=== PATIENT | female | born 1990 | race Caucasian/White ===

== ENCOUNTER 2019-10-19 15:21 | Emergency (ER) | payer SELFPAY ==
--- OUTSIDE RECORDS SUMMARY | 2019-10-19 15:45 | XMS REPORT | Continuity of Care Document ---
:1990 Author Organization [facility] Address [address] [place] [address] Phone Care Team Providers Name Role Phone Deepak COON, Taylor Unavailable Unavailable Allergies, Adverse Reactions, Alerts Substance Reaction Status shellfish derived Active IODINE Nausea/Vomiting Active Medications Medication Instructions Dosage Effective Dates Status Comments (start - stop) Depo-Provera 150 IM Q 11-13 weeks - Active mg/mL intramuscular suspension LEXAPRO (unknown Not Available - Active strength) ADDERALL (unknown Not Available - Active strength) Problems Condition Effective Dates Clinical Status Comments (start - stop) Atyp squam cell of undet signfc cyto smr crvx (ASC-US) Cervical high risk HPV DNA test positive Mild cervical dysplasia Encounter for oth general - cnsl and advice on contraception Cervical high risk HPV DNA test positive Mild cervical dysplasia Encntr screen for infections w sexl mode of transmiss Encounter for surveillance of injectable contraceptive Encounter for surveillance of injectable contraceptive Human immunodeficiency virus - [HIV] counseling Encounter for surveillance of injectable contraceptive Encntr screen for infections w sexl mode of transmiss Human immunodeficiency virus - [HIV] counseling Encounter for surveillance of injectable contraceptive Encounter for surveillance of injectable contraceptive Human immunodeficiency virus - [HIV] counseling Encounter for test, result negative Encounter for test, result negative Carcinoma in situ of cervix, unspecified Cervical high risk HPV DNA test positive Low grade intrepith lesion cyto smr crvx (LGSIL) Encounter for surveillance of injectable contraceptive Encounter for screening for malignant neoplasm of cervix Encounter for surveillance of injectable contraceptive Encntr screen for infections w sexl mode of transmiss Disorder of the skin and subcutaneous tissue, unspecified Sebaceous cyst Encounter for surveillance of injectable contraceptive Encounter for surveillance of injectable contraceptive Encounter for surveillance of injectable contraceptive Moderate cervical dysplasia Low grade intrepith lesion cyto smr crvx (LGSIL) Human immunodeficiency virus - [HIV] counseling Encounter for test, result negative 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) (routine) w/o abn findings Encounter for oth screening for malignant neoplasm of breast Encntr screen for infections w sexl mode of transmiss Encounter for initial prescription of injectable contracep Encounter for surveillance of injectable contraceptive Encntr screen for infections w sexl mode of transmiss Encounter for surveillance of injectable contraceptive Encounter for surveillance of injectable contraceptive Encounter for test, result negative Encounter for surveillance of injectable contraceptive Encntr screen for infections w sexl mode of transmiss Encounter for surveillance of injectable contraceptive Contact w and exposure to infect w a sexl mode of transmiss Encntr screen for infections w sexl mode of transmiss Encounter for surveillance of injectable contraceptive Encounter for surveillance of injectable contraceptive PT, Negative BCM Other, Surveillance Urinary Urgency BCM Other, Surveillance BCM Other, Surveillance BCM Other, Surveillance HIV, Screening HIV 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 [address], [place], [place], [facility], [address] [address]. W [address] tel:[phone] St, [place], [address] [place] [address], [id number], tel:[phone] [facility] Atyp squam cell Nov-1 Deepak Referring [facility] [place] of undet sign 9-201 Taylor. [address] Provider: [place] cyto smr crvx [address], [place] (ASC-US)Cervica [place], Raphaelidis [facility], 620 l high risk HPV [address]. , [address] DNA test tel:[phone] [address], St, [place], positiveMild [address] [place], [place], cervical [address]. [id number], dysplasia tel:[phone] [place] 433543 tel:[phone] [facility] Encounter for Parete Referring [facility] [place] ot general 5- Kenna. [address] Provider: Buffy cnsl and advice [address], [place], [place], [address] [place], 620 contraceptionCe [address]. W [address] W [address] rvical high tel:[phone] St, [place], , [place], [place] [address] [place], [address]. [place], test tel:[phone], positiveMild 564313 [place] cervical tel:[phone] dysplasiaEncntr [id number] screen for infections w sexl mode of transmissEncoun ter for surveillance of injectable contraceptive [facility] Encounter for [facility] Referring [facility] [place] surveillance of Taylor. [address] Provider: [facility] injectable [address], [place] contraceptiveHu [place] man [address]. , [address] immunodeficienc tel:[phone] [address], St, [place], y virus [HIV] [address] [place], [place], [place], counseling [address]. [id number], tel:[phone] [place] 389047 tel:[phone] [facility] Encounter for [place] Helene. Referring [facility] [place] surveillance of [address] Provider: [facility] injectable [address], [place], [place], [address], [place], [address] [place], 620 cntr screen for [place]. W Yuhaaviatam W Yuhaaviatam infections w St, [place], [place], [place], [place], [address]. [place], transmissHuman [id number], immunodeficienc [place] y virus [HIV] tel:[phone] counseling [phone] [facility] Encounter for Reid Referring [facility] [place] surveillance of Sherine. 620 Provider: [place] injectable [address], [place] contraceptive [place], Reid [place], [address] [place], 620 [address], [place]. W Yuhaaviatam W Yuhaaviatam tel:[phone] St, [place], St, [place], [address] [place], [address]. [place], tel:[phone], 603198Ylvyz [place] lting tel:[phone] Provider: 486398 N[place]SE [place] [facility]. [facility] Encounter for Reid Referring [facility] [place] surveillance of Sherine. 620 Provider: [place] injectable [address], [place] contrace[place], Reid [place], [address] [place], 620 man [address], [place]. W Yuhaaviatam W Yuhaaviatam immunodeficienc tel:[phone] St, [place], St, [place], [place] virus [[place]] [address] [place], [address]. [place], counselingEncou tel:[phone], nter for 935783 [place] test, tel:[phone] result negative [phone] [facility] Encounter for Raphaelidis Referring [facility] [place] test, Taylor. [address] W Provider: Southern result [address], [place] negativeCarcino [place], [place], 620 [place] [address]. , [address] W [address] cervix, tel:[phone] [address], St, [place], unspecifiedCerv [address] [place], [place], [place], ical high risk [address]. [id number], HPV DNA test tel:[phone] [place] positiveLow 751229 tel:[phone] grade intrepith [phone] lesion cyto smr crvx (LGSIL) [facility] Sherine. 620 Provider: [place] injectable [address], Sherine [place] contraceptiveEn [place], [place], [address] [place], 620 [place] [address], [place]. W Yuhaaviatam W Yuhaaviatam screening for tel:[phone] St, [place], St, [place], [place] [address] [place], [address]. [place], neoplasm of tel:[phone], cervix 782339 [place] tel:[phone] [facility] Encounter for Lawrence Narayan. [facility] of 3 [address] Provider: [facility] injectable [address], [place], [place], [address], [place], [address] [place], 620 [place]. W [address], [place], [place], [place], [address]. [place], [id number], [place] tel:[phone] [facility] Encntr screen [place] Referring [facility] for infections [place] Provider: [facility] w sexl mode of 8 Sueane. 620 Sueane [place] transmissDisord W [address], [place], 620 er of the skin [place], [place], W [place] and [address], [place], subcutaneous tel:[phone] [address], [place], tissue, [address] [place], [place], [id number], unspecifiedSeba [address]. [place] ceous cyst tel:[phone] tel:[phone] [facility] Encounter for Lawrence Narayan. Referring [facility] surveillance of 0 620 W [address] Provider: [facility] injectable [address] St, [place], [place], [address], [place], [address] [place], 620 [place]. W [address], [place], [place], [place], [address]. [place], [id number], [place] tel:[phone] [facility] Encounter for Lawrence Narayan. [facility] of 620 [address] Provider: [facility] injectable [address] St, [place], [place], [address], [place], [address] [place], 620 [place]. W [address] W [address], [place], [place], [place], [address]. [place], [id number], [place] tel:[phone] [facility] Encounter for Lawrence Narayan. [facility]ing [facility] surveillance of 620 [address] Provider: [facility] injectable [address], [place], [place], [address], [facility]. [facility], [facility] [place]. W [address], [place], [place], [id number], [place] tel:[phone] [facility] Moderate May- Parete [facility] [place] cervical [facility]-[employer]. [address] dysplasia [address], [place], [place], [facility], 620 [address]. W Yuhaaviatam tel:[phone] , [place], [address] [place], [id number], [place] tel:[phone] [facility] Low grade May- Parete [facility] [place] intrepith 0-201 Kenna. [address] lesion cyto smr [address], [place] crvx (LGSIL) [place], [facility], [facility] [address]. W Yuhaaviatam tel:[phone] , [place], [address] [place], [id number], [place] tel:[phone] [facility] Human Apr- White Helene. [facility] [place] immunodeficienc [address] y virus [HIV] 7 St, [place], [place], [address], [facility], [facility] nter for [place]. W Yuhaaviatam test, [facility], result [place], negativeEncntr [id number], for kennel helper exam [place] (general) tel:[phone] (routine) w/o [id number] abn findingsEncount er for oth screening for malignant neoplasm of breastEncntr screen for infections w sexl mode of transmissEncoun ter for initial prescription of injectable contracep [facility] Encounter for [place] [facility] [place] surveillance of [place] injectable 7 Sueane. [address] contraceptiveEn [address], [facility], [facility] cntr screen for [place], [place] [address], [place], sexl mode of tel:[phone] [place], transmiss [id number], [place] tel:[phone] [facility] Encounter for Borglum Consulting [facility] [place] surveillance of Kelle. 620 Provider: [place] injectable [address], [place]URSE [place] contrace[place], [facility]. [place] [address], [place]. W Yuhaaviatam tel:[phone] St, [place], [address] [place], [id number], [place] tel:[phone] [facility] Encounter for Sep-0 Borglum Consulting [facility] surveillance of Kelle. 620 Provider: [place] injectable [address], NURSE [place] contraceptive[place], [facility]. [facility], [facility] [place] [address], [place]. W Yuhaaviatam test, tel:[phone] St, [place], result negative [address] [place], [id number], [place] tel:[phone] [facility] Encounter for Sy- Lawrence Narayan. [facility] of [address] injectable [address], [place], [place], [address], [facility], 620 cntr screen for [place]. W Yuhaaviatam infections w St, [place], [place]l mode [place], transmiss [id number], [place] tel:[phone] [facility] Encounter for February- Lawrence Narayan. Consulting [facility] surveillance of 620 W Yu[address]am Provider: [place] injectable 6 [address], [place], [place], [address], [facility]. [facility], [address] [place], [place], [place], [id number], [place] tel:[phone] [facility] Contact w and Mar-2 [facility] exposure to Kieran. [address] infect w a sexl [address], [place], [place], [place], 620 transmissEncntr [address]. W Yuhaaviatam screen for tel:[phone] St, [place], [place] [address] [place], sexl mode of [id number], transmiss [place] tel:[phone] [facility] Encounter for Som- Kornblum Consulting [facility] surveillance of Laura. 620 W Provider: [place] injectable [address], [place]URSE [place], [facility]. [facility], [facility] [address]. W Yuhaaviatam tel:[phone] St, [place], [address] [place], [id number], [place] tel:[phone] [facility] Encounter for Oct-2 Brianna Nidhi. [facility] [place] surveillance of 8-201 [address] injectable [address] [place] contraceptive [place], [facility], 620 [address]. W Yu[address]iatam tel:[phone] St, [place], [address] [place], [id number], [place] tel:[phone] [facility] PT, NegativeBCM Apr- Jhonathan Beal. [facility] [place] Other, [address] SurveillanceUri [address], [place], [place], [address]. [facility], [facility] tel:[phone], [place], [place], [id number], [place] tel:[phone] [facility] BCM Other, Jhonathan Beal. Consulting [facility] Surveillance [address] Provider: [facility] 5 , [place], [place], [address]. [facility]. [facility], [facility] tel:[phone] [address] [address] , [place], [place], [id number], [place] tel:[phone] [facility] BCM Other, Parete [facility]ing [facility] Surveillance Kenna. 620 W Provider: [facility] [address], [place], [place], [facility]. [facility], [facility] [address]. W Yuhaaviatam tel:[phone] St, [place], [address] [place], [id number], [place] tel:[phone] [facility] BCM Other, Deepak Consulting [facility] Surveillance Taylor. 620 W Provider: [facility] [address], [place]SE [place], [facility]. [facility], [facility] [address]. W Yuhaaviatam tel:[phone] St, [place], [address] [place], [id number], [place] tel:[phone] [facility] Judi [facility] [place] Bing. [address], [place], [facility], [facility] [address]. W Yuhaaviatam tel:[phone] St, [place], [address] [place], [id number], [place] tel:[phone] [facility] 3 Brianna Terrell. [facility] [place] 0 [address] [place], [facility], [facility] [address]. W Yuhaaviatam tel:[phone] St, [place], [address] [place], [id number], [place] tel:[phone] [facility] HIV, Jhonathan Beal. [facility] [place] ScreeningHIV 0- 620 [address], [place], [place], [address]. 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 [facility] [place] Routine WWEBCM 0-201 [address] Other, [address] [place] Surveillance [place], [place], [facility], [facility] [address]. W Yuhaaviatam tel:[phone] , [place], [address] [place], [id number], [place] tel:[phone] [facility] BCM Other, Chloe [facility]ing [facility] [place] Provider: [facility] [address], [place]SE [place], [place], [facility]. [place] [address]. W Yu[place]am tel:[phone] , [place], [address] [place], [id number], [place] tel:[phone] Family History Family Member Diagnosis Age At Onset Father Hypertension Mother No history of Stroke Father No history of Myocardial infarction 1st degree relative No hx of cancer of breast, colon, endometrium or ovary Maternal grandmother Cancer, ovarian Mother Hypertension Father No history of Stroke Mother No history of Myocardial infarction 1st degree relative No hx of venous thromboembolism 1st degree relative No hx of coronary heart disease (female <65, male <55) Father High cholesterol Immunizations Vaccine Date Status Comments measles, mumps and rubella administered Note: [facility] 2005 ; virus vaccine Source: Source Unspecified Hep B, adult, 3 dose administered Note: [facility] HX 07/2006 ; Source: Source Unspecified Payers Payer name Insurance type Covered green party ID Authorization(s) [facility] [id number] Social History Type Description Quantity Date Captured Comments Alcohol Use Details Unknown Caffeine Use Details Unknown Tobacco Use Status Unknown Smoking Status Former smoker Sex Female Vital Signs Date / Height Weight BMI Pulse Blood Temperature Respiratory Body Head BMI Pulse Inhaled Time: Rate Pressure Rate Surface Circumference percentile Ox Ox Area No information Chief Complaint And Reason For Visit No information Reason For Referral Reason For Referral No information Plan Of Treatment Date Type Action Status Referral Ordered: ordered Gynecology (related to Moderate cervical dysplasia) Referral Referred To: ordered [facility] [place] [address] [place], [place], [id number] Ordered: Referrals: Gynecology. [facility]. Evaluate and treat History Of Present Illness Encounter Date Complaint History Of Present Illness No information Functional Status Date Functional Assessment No information Medications Administered Medication Instructions Dosage Effective Dates (start - stop) Status Comments No information Instructions Date Instruction Additional Information No information Assessments Type Assessment Date No information Goals Health Concern Goal Type Priority Status Date No information Medical Equipment Description Device Alton Device Identifier Effective Dates (start - stop ) Status No information Mental Status Date Cognitive Assessment No information Health Concerns Observation Date No information Concern Status Date No information
--- OUTSIDE RECORDS SUMMARY | 2019-10-19 15:45 | XMS REPORT | Continuity of Care Document ---
:1990 Author Organization [facility] Address [address] [place] [address] Phone Care Team Providers Name Role Phone Lian Parekh Unavailable Unavailable Allergies, Adverse Reactions, Alerts Substance Reaction Status shellfish derived Active IODINE Nausea/Vomiting Active Medications Medication Instructions Dosage Effective Dates Status Comments (start - stop) Depo-Provera 150 IM Q 11-13 weeks - Active mg/mL intramuscular suspension LEXAPRO (unknown Not Available - Active strength) ADDERALL (unknown Not Available - Active strength) Problems Condition Effective Dates Clinical Status Comments (start - stop) Moderate cervical dysplasia Atyp squam cell of undet signfc cyto smr crvx (ASC-US) Cervical high risk HPV DNA test positive Atyp squam cell of undet signfc cyto [...] Encounter for test, result negative Encntr for purler exam (general) (routine) w/o abn findings Encounter [...] BCM Other, Surveillance HIV, Screening HIV Counseling [employer] Exam, Routine WWE BCM Other, Surveillance BCM [...] For Visit Copied on Encounter [facility] Jhonathan Beal. [facility] [place] [address] 9 [facility], [address]. [facility], [facility] tel:[phone] [address] [place] [address], [id number], tel:[phone] [facility] Moderate Nov-2 Raphaelidis [facility] [place] cervical 5-201 [place]. [address] dysplasiaAtyp [address], [place] squam cell [place], [place], 620 undet signfc [address]. [address] cyto smr crvx tel:[phone] St, [place], (ASC-US)Cervica [address] [place], l high risk HPV [id number], DNA test [place] positive tel:[phone] [facility] Atyp squam cell Nov-1 Raphrichard Referring [facility] [place] of undet signfc 9-201 [place]. [address] W Provider: Southern cyto smr crvx [address], [place] (ASC-US)Cervica [place], [facility], 620 l high risk HPV [address]. , [address] DNA test tel:[phone], [place], [place], positiveMild [address] [place], [place], cervical [address]. [id number], dysplasia tel:[phone] [place] 804698 tel:[phone] [facility] Encounter for Aug-0 Parete Referring [facility] [place] ot general 5-201 Kenna. 620 W Provider: [facility] cnsl and advice [address], [place], Parete, 620 [place], 620 contraceptionCe [address]. [address] [place] rvical high tel:[phone] St, [place], [place], [place], [place] [address] [place], [address]. [place], test tel:[phone], positiveMild 166240 [place] cervical tel:[phone] dysplasiaEncntr 050029 screen for infections w sexl mode of transmissEncoun ter for surveillance of injectable contraceptive [facility] Encounter for [facility] [address] Referring [facility] [place] surveillance of 2-201 Taylor. [address] W Provider: [facility] injectable [address], [place] contraceptiveHu [place], [facility], 620 man [address]. , [address] immunodeficienc tel:[phone], St, [place], y virus [HIV] [address] [place] [address]. [id number], tel:[phone] [place] 506230 tel:[phone] [facility] Encounter for Sy-2 White Helene. Referring [facility] [place] surveillance of [address] Provider: Southern injectable 9 [address], [place], [place], [address], [place], 620 [place], 620 cntr screen for [place]. [address] [place] [address] [place] infections w [address], [place], [place], [place], [address]. [place], transmissHuman [id number], immunodeficienc [place] y virus [HIV] tel:[phone] counseling [phone] [facility] Encounter for Reid Referring [facility] [place] surveillance of Sherine. 620 Provider: Southern injectable [address], Sherine [place] contraceptive [place], Reid J, 620 [place], 620 [address], [place]. [address] [place] tel:[phone] St, [place], [place], [place], [address] [place], [address]. [place], tel:[phone], 107226Sqcye [place] lting tel:[phone] Provider: [id number] [place]SE [place] [facility]. [facility] Encounter for Reid Referring [facility] [place] surveillance of Sherine. 620 Provider: Southern injectable [address], Sherine [place] contraceptiveHu [place], Reid J, 620 [place], 620 man [address], [place]. [address] [place] immunodeficienc tel:[phone] St, [place], [place], [place], [place] virus [[place]] [address] [place], [address]. [place], counselingEncou tel:[phone], nter for [id number] [place] test, tel:[phone] result negative [phone] [facility] Encounter for Raphaelidis Referring [facility] [place] test, Taylor. 620 W Provider: [facility] result [address], [place] negativeCarcino [place], [place], Raphaelidis [place], 620 [place] [address]. , [address] cervix, tel:[phone] [address], St, [place], unspecifiedCerv [address] [place], [place], ical high risk [address]. [id number], HPV DNA test tel:[phone] US positiveLow 150003 tel:[phone] grade intrepith [id number] lesion cyto smr crvx (LGSIL) [facility] Encounter for Reid [facility] surveillance of Sherine. 620 Provider: [facility] injectable [address], Sherine [place]inger contraceptiveEn [place], Reid J, 620 [place], 620 [place] [address], [place]. [address] [place] [address] [place] screening for tel:[phone] St, [place], [place], [place], [place] [address] [place], [address]. [place], neoplasm of tel:[phone], cervix 062942 [place] tel:[phone] [facility] Encounter for Lawrence Narayan. [facility]erring [facility] surveillance of [address] Provider: [facility] injectable 8 St, [place], [place], [address], White, 620 [facility], 620 [place]. [address], [place], [place], [place], [address]. [place], [id number], [place] tel:[phone] [facility] Encntr screen Hemmer Referring [facility] [place] for infections Goodre Provider: [facility] sexl mode of 8 Sueane. 620 Sueane Finger transmissDisord [address], [place], 620 er of the skin [place], [facility], [address], [place], subcutaneous tel:[phone] [address], [place], tissue, [address] [place], [place], [id number], unspecifiedSeba [address]. [place] ceous cyst tel:[phone] tel:[phone] [facility] Encounter for Lawrence Narayan. [facility]erring [facility] surveillance of [address] Provider: Southern injectable 8 St, [place], [place] [address], [place], 620 [place], 620 [place]. [address], [place], [place], [place], [address]. [place], [id number], [place] tel:[phone] [facility] Encounter for Lawrence Narayan. Referring [facility] surveillance of [address] Provider: [facility] injectable 8 St, [place], [place], [address], White, 620 [facility], [facility] [place]. [address], [place], [place], [place], [address]. [place], [id number], [place] tel:[phone] [facility] Encounter for Lawrence Narayan. [facility]ing [facility] surveillance of [address] Provider: [facility] injectable 7 , [place] [address], [facility]. [facility], [facility] [place]. [address], [place], [place], [id number], [place] tel:[phone] [facility] Moderate Parete [facility] cervical 6- Kenna. [address] dysplasia [address], [place], [facility], [facility] [address]. [address] tel:[phone] , [place], [address] [place], [id number], [place] tel:[phone] [facility] Low grade Parete [facility] intrepith 0-201 Kenna. [address] lesion cyto smr [address], [place] crvx (LGSIL) [place], [facility], [facility] [place] [address]. [address] [place] tel:[phone] St, [place], [address] [place], [id number], [place] tel:[phone] [facility] Human Lawrence Narayan. [facility] [place] immunodeficienc [address] y virus [HIV] 7 St, [place], [place], [address], [facility], [facility] nter for [place]. [address] [place] test, [facility], result [place], negativeEncntr [id number], for purler exam [place] (general) tel:[phone] (routine) w/o [id number] abn findingsEncount er for oth screening for malignant neoplasm of breastEncntr screen for infections w sexl mode of transmissEncoun ter for initial prescription of injectable contracep [facility] Encounter for Hemmer [facility] surveillance of [place] Southern injectable 7 Sueane. [address], [facility], 620 cntr screen for [place], [place] [address], [place], sexl mode of tel:[phone] [place], transmiss [id number], [place] tel:[phone] [facility] Encounter for Nov-2 [employer] [facility] surveillance of Desdemona. 620 Provider: [place] injectable [address], NURSE [place] contrace[place], [facility]. [facility], 620 [address], [place]. [address] [place] tel:[phone] St, [place], [address] [place], [id number], [place] tel:[phone] [facility] Encounter for Sep-0 [employer] [facility] surveillance of Desdemona. 620 Provider: [place] injectable [address], NURSE [place] contraceptive[place], [facility]. [facility], 620 [place] [address], [place]. [address] [place] test, tel:[phone] St, [place], result negative [address] [place], [id number], [place] tel:[phone] [facility] Encounter for Sy-2 Lawrence Narayan. [facility] surveillance of [address] injectable [address], [place], [place] [address], [facility], 620 cntr screen for [place]. [address] [place] [address] infections w [address], [place], [place]l mode of [place], transmiss [id number], [place] tel:[phone] [facility] Encounter for February-0 Lawrence Narayan. Consulting [facility] surveillance of [address] Provider: [place] injectable 6 St, [place], [place], [address], [facility]. [facility], [address], [place], [place], [id number], [place] tel:[phone] [facility] Contact w and Mar-2 [place] [facility] exposure to Kieran. 620 [place] infect w a sexl [address], [place] mode [place], [place], 620 transmissEncntr [address]. [address] screen for tel:[phone] St, [place], [place] w [address] [place], sexl mode of [id number], transmiss [place] tel:[phone] [facility] Encounter for Korwilmanlum [employer] [facility] surveillance of Laura. 620 W Provider: [facility] injectable [address], NURSE [place] contraceptive [place], [place], [facility]. [facility], [facility] [place] [address]. [address] [place] tel:[phone] St, [place], [address] [place], [id number], [place] tel:[phone] [facility] Encounter for Brianna Terrell. [facility] [place] surveillance of [address] [place] injectable [address] [place] contraceptive [place], [facility], [facility] [place] [facility] [address]. [address] [place] tel:[phone] St, [place], [address] [place], [id number], [place] tel:[phone] [facility] PT, NegativeBCM Jhonathan Beal. [facility] [place] Other, [address] SurveillanceUri [address], [place], [place], [address]. [facility], [facility] tel:[phone] [address], [place], [place], [id number], [place] tel:[phone] [facility] BCM Other, Jhonathan Beal. Consulting [facility] Surveillance [address] Provider: Southern [address], [place], [address]. [facility]. [facility], [facility] tel:[phone], [place], [place], [id number], [place] tel:[phone] [facility] BCM Other, Parete [facility] Surveillance Kenna. 620 W Provider: Southern [address], NURSE [place], [place], [facility]. [place] [address]. [address] [place] tel:[phone] St, [place], [address] [place], [id number], [place] tel:[phone] [facility] BCM Other, Jul-0 Leeraciel [employer] [facility] Surveillance Taylor. 620 W Provider: Southern [address], NURSE [place], [place], [facility]. [facility], [facility] [address]. [address] [place] tel:[phone] St, [place], [address] [place], [id number], [place] tel:[phone] [facility] May- Judi [facility] [place] 5-201 Bing. [address], [place], [facility], [facility] [address]. [address] [place] tel:[phone] St, [place], [address] [place], [id number], [place] tel:[phone] [facility] Brianna Terrell. [facility] [place] 0-201 [address] [facility], [place], [facility], [facility] [address]. [address] [place] [address] tel:[phone] St, [place], [address] [place], [id number], [place] tel:[phone] [facility] HIV, Jhnoathan Beal. [facility] [place] ScreeningHIV 0-201 [address] Counseling 4 , [place], [facility], [place], [address]. [facility], [facility] tel:[phone], [place], [place], [id number], [place] tel:[phone] [facility] [employer] Exam, Brianna Terrell. [facility] Routine WWEBCM 0-201 [address] Other, [address] [place] Surveillance [place], [facility], [facility] [address]. [address] [place] tel:[phone] St, [place], [address] [place], [id number], [place] tel:[phone] [facility] BCM Other, 0 Chloe [facility] Surveillance Kieran. 620 Provider: [facility] [address], [place]SE [place], [facility]. [place] [address]. [address] [place] tel:[phone] St, [place], [address] [place], [id number], [place] tel:[phone] Family History Family Member Diagnosis Age At [...] Unspecified Payers Payer name Insurance type Covered democrat ID Authorization(s) [facility] [id number] Social History Type Description Quantity Date Captured [...] Of Treatment Date Type Action Status Referral Referred To: ordered [facility] Ordered: [facility] Referral Ordered: ordered Gynecology (related to Moderate cervical dysplasia) Referral Referred To: ordered [facility] [employer] [facility] [address] [place], [place], [id number] Ordered: Referrals: Gynecology. [facility] [employer] [facility]. Evaluate and treat History Of Present Illness [...] Date No information Medical Equipment Description Device Mooers Device Identifier Effective Dates (start - stop ) Status No information Mental Status Date Cognitive Assessment No information Health Concerns Observation Date No information Concern Status Date No information
--- OUTSIDE RECORDS SUMMARY | 2019-10-19 15:45 | XMS REPORT | Continuity of Care Document ---
:1990 Author Organization [facility] Address [address] [place] [address] Phone Care Team Providers Name Role Phone Kenna Gusman NP Unavailable Unavailable Allergies, Adverse Reactions, Alerts Substance Reaction Status shellfish derived Active IODINE Nausea/Vomiting Active Medications Medication Instructions Dosage Effective Dates Status Comments (start - stop) Depo-Provera 150 IM Q 11-13 weeks - Active mg/mL intramuscular suspension LEXAPRO (unknown Not Available - Active strength) ADDERALL (unknown Not Available - Active strength) Problems Condition Effective Dates Clinical Status Comments (start - stop) Encounter for oth general - cnsl and [...] Encounter for test, result negative 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 [address], [place], [place], [facility] [address]. W [address] tel:[phone] St, [place], [address] [place] [address], [id number], tel:[phone] [facility] Encounter for [facility] Referring [facility] [place] ot general Kenna. [address] Provider: Buffy cnsl and advice [address], [place], P[place]te, [address], 620 contraceptionCe [address]. W [address]q W [place] rvical high tel:[phone] St, [place], St, [place], [place] [address] [place], [address]. [place], test tel:[phone], positiveMild 949160 [place] cervical tel:[phone] dysplasiaEncntr 612283 screen for infections w sexl mode of transmissEncoun ter for surveillance of injectable contraceptive [facility] En[facility] [place] surveillance of [place]. [address] W Provider: Southern injectable [address], [place] contraceptiveHu [place], [place], [place], 620 man [address]. , [address] immunodeficienc tel:[phone] [address], St, [place], [place] virus [HIV] [address] [place], [place] [address]. [id number], tel:[phone] [place] 406073 tel:[phone] [facility] Encounter for White Helene. Referring [facility] surveillance of [address] Provider: Southern injectable 9 St, [place], [place], [address], White, [address] [place], 620 cntr screen for [place]. W Mi'Kmaq W [address]'Kmaq infections w St, [place], [place], [place], [place], [address]. [place], transmissHuman [id number], immunodeficienc [place] y virus [HIV] tel:[phone] counseling [phone] [facility] Encounter for Referring [facility] surveillance of Sherine. 620 Provider: Southern injectable [address], Sherine Finger contraceptive [place], [place], Reid J, [address] [place], 620 [address], [place]. W Mi[place]Kmaq W Mi'Kmaq tel:[phone] St, [place], [place], [place], [address] [place], [address]. [place], tel:[phone], 278191Nbrid [place] lting tel:[phone] Provider: [id number] NURSE [place] [facility]. [facility] Encounter for Referring [facility] surveillance of Sherine. 620 Provider: Southern injectable [address], Sherine Finger contraceptiveHu [place], [place], Reid J, [address] [place], 620 man [address], [place]. W Mi'Kmaq W Mi'Kmaq immunodeficienc tel:[phone] St, [place], St, [place], [place] virus [[place]] [address] [place], [address]. [place], counselingEncou tel:[phone], nter for 678472 [place] test, tel:[phone] result negative [id number] [facility] Encounter for Raphaelidis Referring [facility] [place] test, Taylor. 620 W Provider: Southern result [address], [place] Finger negativeCarcino [place], [place], [place], 620 [place] [address]. , [address] W W [address] cervix, tel:[phone] [address], St, [place], unspecifiedCerv [address] [place], [place], [place], ical high risk [address]. [id number], HPV DNA test tel:[phone] US positiveLow 593324 tel:[phone] grade intrepith [phone] lesion cyto smr crvx (LGSIL) [facility] Encounter for Reid Referring [facility] surveillance of Sherine. 620 Provider: Southern injectable [address], Sherine Finger contraceptiveEn [place], [place], Reid J, 620 [place], 620 [place] [address], [place]. W Mi[place]Kmaq W Mi[place]q screening for tel:[phone] St, [place], [place], [place], [place] [address] [place], [address]. [place], neoplasm of tel:[phone], cervix [address]1001 [place] tel:[phone] [facility] Encounter for White Helene. Referring [facility] surveillance of 620 [address] Provider: Southern injectable 8 St, [place], [place], [address], White, 620 [place], 620 [place]. W [address], [place], [place], [place], [address]. [place], [id number], [place] tel:[phone] [facility] Encntr screen Hemmer Referring [facility] for infections Goodreau Provider: Southern w sexl mode of 8 Sueane. 620 Sueane Finger transmissDisord W [address], [place] [facility], 620 er of the skin [place], [place], [place], W [place] and [address], [place], subcutaneous tel:[phone] [address], [place], tissue, [address] [place], [place], [id number], unspecifiedSeba [address]. [place] ceous cyst tel:+[phone] tel:[phone] [facility] Encounter for Lawrence Narayan. Referring [facility] surveillance of 0 620 W [address] Provider: Southern injectable 8 St, [place], [place], [address], White, 620 [facility], 620 [place]. W [address] W [address], [place], [place], [place], [address]. [place], [id number], [place] tel:[phone] [facility] Encounter for Lawrence Narayan. Referring [facility] surveillance of 620 [address] Provider: Southern injectable 8 St, [place], [place], [address], White, [address] [place] [address], [facility] [place]. W Mi[place] W [address], [place], [place], [place], [address]. [place], [id number], [place] tel:[phone] [facility] Encounter for Lawrence Narayan. Consulting [facility] surveillance of 620 W [address] Provider: Southern injectable 7 St, [place], [place], [address], [facility]. [facility], [facility] [place]. W [address], [place], [place], [id number], [place] tel:[phone] [facility] Moderate [facility] [place] cervical 6-201 Kenna. [address] dysplasia [address], [place], [facility], 620 [address]. 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 [address] lesion cyto smr [address], Finger crvx (LGSIL) [place], [place], [facility], 620 [address]. W [address]q tel:[phone] , [place], [address] [place], [id number], [place] tel:[phone] [facility] Human Osbaldo-2 Lawrence Narayan. [facility] immunodeficienc [address] y virus [HIV] 7 , [place], [place], [address], [facility], 620 nter for [place]. W [address] test, [facility], result [place], negativeEncntr [id number], for director religious education exam [place] (general) tel:[phone] (routine) w/o [phone] abn findingsEncount er for oth screening for malignant neoplasm of breastEncntr screen for infections w sexl mode of transmissEncoun ter for initial prescription of injectable contracep [facility] Encounter for Hemmer [facility] 7 Sueane. 620 Finger contraceptiveEn [address], [facility], 620 cntr screen for [place], [place], [place] [address]. [facility], sexl mode of tel:[phone] [place], transmiss [id number], [place] tel:[phone] [facility] Encounter for Nov-2 [employer] [facility] surveillance of Jenison. 620 Provider: Southern injectable [address], NURSE [place] contrace[place], [place], [facility]. [facility], [facility] [address], [place]. W [place] tel:[phone] [facility], [address] [place], [id number], [place] tel:[phone] [facility] Encounter for Sep-0 [employer] [facility] surveillance of Jen[place]. 620 Provider: Southern injectable [address], NURSE [place] contraceptive[place], [place], [facility]. [facility], 620 [place] [address], [place]. W Mi'Kmaq test, tel:[phone] [facility], result negative [address] [place], [id number], [place] tel:[phone] [facility] Encounter for Sy-2 White Helene. [facility] surveillance of [address] Southern injectable 6 , [place], [place], [address], [facility], 620 cntr screen for [place]. W [address] infections w St, [place], sexl mode of [place], transmiss [id number], [place] tel:[phone] [facility] Encounter for February-0 Lawrence Narayan. Consulting [facility] surveillance of 620 W [address] Provider: Southern injectable 6 St, [place], [place], [address], [facility]. [facility], [address] [place], [place], [place], [id number], [place] tel:[phone] [facility] Contact w and Dec- [place] [facility] exposure to Kieran. [address] infect w a sexl [address], [place] mode of [place], [facility], 620 transmissEncntr [address]. W Mi'[place]maq screen for tel:[phone] St, [place], [place] [address] [place], sexl mode of [id number], transmiss [place] tel:[phone] [facility] Encounter for Kornblum Consult[employer] [facility] surveillance of Laura. 620 W Provider: Southern injectable [address], NURSE [place] contrace[place], [place], [facility]. [facility], [facility] [address]. W Mi'Kmaq tel:[phone] St, [place], [address] [place], [id number], [place] tel:[phone] [facility] Encounter for Brianna Terrell. [facility] surveillance of [address] injectable [address] [place]inger contraceptive [place], [facility], [facility] [address]. W Mi'Kmaq tel:[phone] St, [place], [address] [place], [id number], [place] tel:[phone] [facility] PT, NegativeBCM Apr- Jhonathan Beal. [facility] [place] Other, [address] SurveillanceUri [address], [place], [place], [address]. [facility], [facility] tel:[phone], [place], [place], [id number], [place] tel:[phone] [facility] BCM Other, Jan- Jhonathan Beal. Consulting [facility] Surveillance 2- 620 [address] Provider: [facility] 5 , [place], NURSE [place] [facility], [address]. [facility]. [facility], 620 tel:[phone] [address] [address] , [place], [place], [id number], [place] tel:[phone] [facility] BCM Other, Parete Consulting [facility] Surveillance 7 Kenna. 620 W Provider: [facility] [address], NURSE [place], [place], [facility]. [facility], 620 [address]. W [address]q tel:[phone] St, [place], [address] [place], [id number], [place] tel:[phone] [facility] BCM Other, Leeraciel Consulting [facility] Surveillance [place]. 620 W Provider: [facility] [address], [place], [place], [facility]. [facility], [facility] [address]. W Mi'[place]maq tel:[phone] , [place], [address] [place], [id number], [place] tel:[phone] [facility] Judi [facility] [place] 5 Bing. [address], [facility], [place], [facility], 620 [address]. W [address] tel:[phone] St, [place], [address] [place], [id number], [place] tel:[phone] [facility] Brianna Nidhi. [facility] [place] 0- [address] [facility], [place], [facility], 620 [address]. W [address] tel:[phone] St, [place], [address] [place], [id number], [place] tel:[phone] [facility] HIV, Jhonathan Beal. [facility] [place] ScreeningHIV 0-201 [address], [place], [facility], [address]. [facility], 620 tel:[phone] [address] [address] , [place], [place], [id number], [place] tel:[phone] [facility] PASSPORT SUPPORT ASSOCIATE Exam, Brianna Nidhi. [facility] [place] Routine WWEBCM 0-201 [address] Other, [address] [place]inger Surveillance [place], [place], [facility], 620 [address]. W [address] tel:+[phone] St, [place], [address] [place], [id number], [place] tel:[phone] [facility] BCM Other, Apr-0 [employer] [facility] [place] Surveillance 9 Kieran. 620 Provider: [facility] [address], NURSE [place], [place], [facility]. [facility], 620 [address]. W [address] tel:+[phone] St, [place], [address] [place], [id number], [place] tel:[phone] Family History Family Member Diagnosis Age At [...] Comments measles, mumps and rubella administered Note: PER [employer] HX 2005 ; virus vaccine Source: Source Unspecified Hep B, adult, 3 dose administered Note: PER HEALTH HX 07/2006 ; Source: Source Unspecified Payers Payer name Insurance type Covered constitution party ID Authorization(s) [facility] [id number] Social History Type Description Quantity Date Captured [...] Moderate cervical dysplasia) Referral Referred To: ordered OB-PASSPORT SUPPORT [facility] [place] [address] [place], [place], [phone] Ordered: Referrals: Gynecology. [facility]-PASSPORT SUPPORT [facility] [place]. Evaluate and treat Appointment TEO BROWN BOOKED History Of Present Illness Encounter Date Complaint History Of Present Illness No information Functional Status Date Functional Assessment No information Medications Administered Medication Instructions Dosage Effective Dates (start - stop) Status Comments No information Instructions Date Instruction Additional Information No information Assessments Type Assessment Date No information Goals Health Concern Goal Type Priority Status Date No information Medical Equipment Description Device Oblong Device Identifier Effective Dates (start - stop ) Status No information Mental Status Date Cognitive Assessment No information Health Concerns Observation Date No information Concern Status Date No information
--- OUTSIDE RECORDS SUMMARY | 2019-10-19 15:45 | XMS REPORT | Continuity of Care Document ---
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 Other Contact Center Team Lead.Svc. STI Results Test Name Date and Time Measure Units Reference Range Abnormal Flag Status Comments No information Advance Directives Directive Yes / No Effective Date File Name No information Encounters Encounter Practice Location Reason(s) Diagnoses Date Provider Providers Description For Visit Copied on Encounter [facility] Atyp squam cell Aug- Deepak Referring [facility] sign 9-201 [place]. [address] Provider: Southern cyto smr crvx [address], [place] (ASC-US)Cervica [place], Raphaelidis [facility], 620 l high risk HPV [address]169. , [address] [place] DNA test tel:[phone] [address], St, [place], positiveMild [address] [place], [place], [place], cervical [address]. [id number], dysplasia tel:[phone] [place] [phone] tel:[phone] [facility] Encounter for Parete Referring Parenthood [place] ot general 5- Kenna. 620 [address] Provider: Buffy cnsl and advice [address], [place] on [place], P[place]te, [address] [place], 620 contraceptionCe [address]. [address] [place] rvical high tel:[phone] St, [place], , [place], [place] [address] [place], [address]. [place], test tel:[phone], positiveMild 625734 [place] cervical tel:[phone] dysplasiaEncntr 430462 screen for infections w sexl mode of transmissEncoun ter for surveillance of injectable contraceptive [facility] Encounter for [facility] Referring Parenthood [place] surveillance of Taylor. [address] Provider: [facility] injectable [address], [place] contraceptiveHu [place], [facility], 620 man [address]. , [address] [place] immunodeficienc tel:[phone] [address], St, [place], y virus [HIV] [address] [place], [place], [place], counseling [address]. [id number], tel:[phone] [place] 583015 tel:[phone] [facility] Encounter for [place] Helene. Referring [facility] [place] surveillance of [address] [place] Provider: [facility] injectable 9 St, [place], [place], [address], White, [address] [place], 620 cntr screen for [place]. [place] infections w St, [place], [place], [place], [address]. [place], transmissHuman [id number], immunodeficienc [place] y virus [HIV] tel:[phone] counseling [phone] [facility] Encounter for Reid Referring Parenthood [place] surveillance of Sherine. 620 Provider: Southern injectable [address], Sherine [place] contraceptive [place], [place], Reid J, [address] [place], [address], [place]. [place] tel:[phone] St, [place], [place], [place], [address] [place], [address]. [place], tel:[phone], 144929Ofmod [place] lting tel:[phone] Provider: [id number] [place]SE [place] [facility]. [facility] Encounter for Reid Referring [facility] [place] surveillance of Sherine. 620 Provider: Southern injectable [address], Sherine [place] contraceptiveHu [place], [place], Reid J, [address] [place], 620 man [address], [place]. [place] immunodeficienc tel:[phone] St, [place], St, [place], [place] virus [[place]] [address] [place], [address]. [place], counselingEncou tel:[phone], nter for 347656 [place] test, tel:[phone] result negative [id number] [facility] Encounter for Raphaelidis Referring Parenthood [place] test, Taylor. 620 W Provider: Southern result [address], [place] negativeCarcino [place], [place], [place]hael[place], 620 [place] [address]. , [address] [place] cervix, tel:[phone] [address], St, [place], unspecifiedCerv [address] [place], [place], [place], ical high risk [address]. [id number], HPV DNA test tel:[phone] [place] positiveLow 739504 tel:[phone] grade intrepith [id number] lesion cyto smr crvx (LGSIL) [facility] Encounter for Referring [facility] [place] surveillance of Sherine. 620 Provider: Southern injectable [address], Sherine [place] contraceptiveEn [place], [place], Reid J, 620 [place], 620 [place] [address], [place]. [place] screening for tel:[phone] St, [place], [place], [place], [place] [address] [place], [address]. [place], neoplasm of tel:[phone], cervix 497189 [place] tel:[phone] [facility] Encounter for Lawrence Narayan. Referring [facility] surveillance of [address] [place] Provider: [facility] injectable 8 St, [place], [place], [address], White, [address] [place], 620 [place]. [address] [place] [address], [place], [place], [place], [address]. [place], [id number], [place] tel:[phone] [facility] Encntr screen Hemmer Referring [facility] for infections [place] Provider: [facility] sexl mode of 8 [place]. 620 Sueane Finger transmissDisord [address], [place], 620 er of the skin [place], [place], [place] [address], [place], subcutaneous tel:[phone] [address], [place], [place], [address] [place], [place], [id number], unspecifiedSeba [address]. [place] ceous cyst tel:[phone] tel:[phone] [facility] Encounter for Lawrence Narayan. Referring [facility] surveillance of 0 [address] [place] Provider: [facility] injectable 8 St, [place], [place], [address], White, 620 [place], 620 [place]. [address] [place] [address], [place], [place], [place], [address]. [place], [id number], [place] tel:[phone] [facility] Encounter for Lawrence Narayan. Referring [facility] surveillance of [address] [place] Provider: [facility] injectable 8 St, [place], [place], [address], White, 620 [place], 620 [place]. [address] [place] [address], [place], [place], [place], [address]. [place], [id number], [place] tel:[phone] [facility] Encounter for Lawrence Narayan. Consulting [facility] [place] surveillance of [address] [place] Provider: [facility] injectable 7 St, [place], [place], [address], [facility]. [place] [address] [place]. [address], [place], [place], [id number], [place] tel:[phone] [facility] Moderate May- Parete [facility] [place] cervical [facility]. [address] [place] dysplasia [address], [place], [place], [facility], 620 [address]. [place] tel:[phone] , [place], [address] [place], [id number], [place] tel:[phone] [facility] Low grade May- Parete [facility] [place] intrepith 0-201 [place]na. [address] Southern lesion cyto smr [address], [place] crvx (LGSIL) [place], [facility], [facility] [address]. [place] tel:[phone] , [place], [address] [place], [id number], [place] tel:[phone] [facility] Human Apr- White Helene. [facility] [place] immunodeficienc [address] [place] y virus [HIV] 7 St, [place], [place], [address], [facility], [facility] nter for [place]. [place] test, [facility], result [place], negativeEncntr [id number], for human resources executive exam [place] (general) tel:[phone] (routine) w/o 210647 abn findingsEncount er for oth screening for malignant neoplasm of breastEncntr screen for infections w sexl mode of transmissEncoun ter for initial prescription of injectable contracep [facility] Encounter for [place] [facility] [place] surveillance of [place] Southern injectable 7 [place]. 620 Finger contraceptiveEn [address], [facility], [facility] cntr screen for [place], [place] [address], [place], sexl mode of tel:[phone] [place], transmiss [id number], [place] tel:[phone] [facility] Encounter for Borglum Consulting [facility] [place] surveillance of Kelle. 620 Provider: Southern injectable [address], NURSE [place] contraceptive [place], [place], [facility]. [place] [address], [place]. [place] tel:[phone] , [place], [address] [place], [id number], [place] tel:[phone] [facility] Encounter for Sep-0 Borglum Consulting [facility] surveillance of Kelle. 620 Provider: Southern injectable [address], NURSE [place] contraceptive[place], [facility]. [facility], [facility] [address], [place]. [place] test, tel:[phone] St, [place], result negative [address] [place], [id number], [place] tel:[phone] [facility] Encounter for Sy- Lawrence Narayan. [facility] surveillance of [address] [place] Southern injectable [address], [place], [place] [address], [facility], 620 cntr screen for [place]. [place] infections w St, [place], [place]l mode [place], transmiss [id number], [place] tel:[phone] [facility] Encounter for February- Lawrence Narayan. Consulting [facility] surveillance of [address] [place] Provider: Southern injectable 6 St, [place], [place], [address], [facility]. [facility], [address] [place]. [address], [place], [place], [id number], [place] tel:[phone] [facility] Contact w and Dec-2 [place] [facility] exposure to Kieran. 620 Southern infect w a sexl [address], [place] mode [place], [place], [place], 620 transmissEncntr [address]. [place] screen for tel:[phone] St, [place], [place] [address] [place], sexl mode of [id number], transmiss [place] tel:[phone] [facility] Encounter for Som- Kornblum Consulting [facility] surveillance of Laura. 620 W Provider: Southern injectable [address], NURSE [place] contrace[place], [facility]. [facility], [facility] [address]. [place] tel:[phone] St, [place], [address] [place], [id number], [place] tel:[phone] [facility] Encounter for Jul- Brianna Nidhi. [facility] [place] surveillance of [address]. Southern injectable [address] [place] contraceptive [place], [facility], 620 [address]. [address] [place] tel:[phone] St, [place], [address] [place], [id number], [place] tel:[phone] [facility] PT, NegativeBCM Apr- Jhonathan Beal. [facility] [place] Other, [address] [place] SurveillanceUri [address], [place], [place], [address]. [facility], [facility] tel:[phone] [address] [place] [address] [address], [place], [place], [id number], [place] tel:[phone] [facility] BCM Other, Jhonathan Beal. Consulting [facility] Surveillance [address] [place] Provider: [facility] 5 , [place], [place], [address]. [facility]. [facility], [facility] tel:[phone] [address] [place] [address] , [place], [place], [id number], [place] tel:[phone] [facility] BCM Other, Parete Consulting [facility] Surveillance Kenna. 620 W Provider: [facility] [address], [place]SE [place], [place], [facility]. [facility], [facility] [address]. [place] tel:[phone] St, [place], [address] [place], [id number], [place] tel:[phone] [facility] BCM Other, Deepak Consulting [facility] Surveillance [place]. 620 W Provider: [facility] [address], NURSE [place], [place], [facility]. [facility], [facility] [address]. [address] [place] tel:[phone] St, [place], [address] [place], [id number], [place] tel:[phone] [facility] Judi [facility] [place] Bing. [address] Southern [address], [place], [facility], [facility] [address]. [place] tel:[phone] St, [place], [address] [place], [id number], [place] tel:[phone] [facility] 3 Brianna Terrell. [facility] [place] 0 [address]. Southern [address] [place], [facility], [facility] [address]. [place] tel:[phone] St, [place], [address] [place], [id number], [place] tel:[phone] [facility] HIV, Jhonathan Beal. [facility] [place] ScreeningHIV 0- 620 [address] [place] Counsel[address], [place], [place], [address]. [facility], 620 tel:[phone] [address] [place] [place] [address], [place], [place], [id number], [place] tel:[phone] [facility] LANGUAGE THERAPIST Exam, Brianna Terrell. [facility] [place] Routine WWEBCM 0-201 [address]. Southern Other, [address] [place] Surveillance [place], [place], [facility], [facility] [address]. [address] [place] tel:[phone] , [place], [address] [place], [id number], [place] tel:[phone] [facility] BCM Other, Chloe [facility]. [facility] Provider: [facility] [address], NURSE [place], [facility]. [place] [address]. [address] [place] tel:[phone] , [place], [address] [place], [id number], [place] tel:[phone] Family History Family Member Diagnosis Age At [...] Insurance type Covered green party ID Authorization(s) [facility] [id number] Social History Type Description Quantity Date Captured Comments Alcohol Use Details Unknown Caffeine Use Details Unknown Tobacco Use Status Ex-cigarette smoker Smoking Status Former smoker Smoking Tobacco Use Cigarette: No Details Available Cigarette: No Details Available Details Sex Female Vital Signs Date / Height Weight BMI Pulse Blood Temperature Respiratory Body Head BMI Pulse Inhaled Time: Rate Pressure Rate Surface Circumference percentile Ox Ox Area 130/82 -2019 mm[Hg] 9:11 AM Chief Complaint And Reason For Visit No information Reason For Referral Reason For Referral No information Plan Of Treatment Date Type Action Status Referral Ordered: ordered Gynecology (related to Moderate cervical dysplasia) Referral Referred To: ordered [facility] [address] [place], [place], [phone] Ordered: Referrals: Gynecology. [facility]. Evaluate and treat History Of Present Illness Encounter Date Complaint History Of Present Illness No information Functional Status Date Functional Assessment No information Medications Administered Medication Instructions Dosage Effective Dates (start - stop) Status Comments No information Instructions Date Instruction Additional Information No information Assessments Type Assessment Date assessment Atyp squam cell of undet signfc cyto smr crvx (ASC-US) assessment Cervical high risk HPV DNA test positive assessment Mild cervical dysplasia Goals Health Concern Goal Type Priority Status Date No information Medical Equipment Description Device [place] Device Identifier Effective Dates (start - stop ) Status No information Mental Status Date Cognitive Assessment No information Health Concerns Observation Date No information Concern Status Date No information
--- OUTSIDE RECORDS SUMMARY | 2019-10-19 15:45 | XMS REPORT | Continuity of Care Document ---
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 [address], [place], [place], [facility], [address] [address]. [address] tel:[phone] St, [place], [address] [place], [id number], tel:[phone] [facility] Moderate Nov-2 Raphaelidis [facility] [place] cervical 5-201 [place]. [address] dysplasiaAtyp [address], [place] squam cell [place], [place], 620 undet signfc [address]. [address] cyto smr crvx tel:[phone] St, [place], (ASC-US)Cervica [address] [place], l high risk HPV [id number], DNA test [place] positive tel:[phone] [facility] Atyp squam cell Nov-1 Raphrichard Referring [facility] [place] of undet signfc 9-201 Taylor. 620 W Provider: Southern cyto smr crvx [address], [place] (ASC-US)Cervica [place], [facility], 620 l high risk HPV [address]. , [address] DNA test tel:[phone], [place], [place], positiveMild [address] [place], [place], cervical [address]. [id number], dysplasia tel:[phone] [place] [phone] tel:[phone] [facility] Encounter for Aug-0 Parete Referring [facility] [place] ot general 5-201 Kenna. 620 W Provider: [facility] cnsl and advice [address], [place], Parete, 620 [place], 620 contraceptionCe [address]. [address] [place] [address] [place] [address] rvical high tel:[phone] St, [place], [place], [place], [place] [address] [place], [address]. [place], test tel:[phone], positiveMild 909776 [place] cervical tel:[phone] dysplasiaEncntr [id number] screen for infections w sexl mode of transmissEncoun ter for surveillance of injectable contraceptive [facility] Encounter for [facility] Referring [facility] [place] surveillance of 2-201 Taylor. 620 W Provider: [facility] injectable [address], [place] contraceptiveHu [place], [place], [facility], 620 man [address]. , [address] immunodeficienc tel:[phone] [address], St, [place], y virus [HIV] [address] [place], [place] [address]. [id number], tel:[phone] [place] [phone] tel:[phone] [facility] Encounter for Sy-2 White Helene. Referring [facility] [place] surveillance of [address] Provider: Southern injectable 9 St, [place], [place], [address], [place], 620 [place], 620 cntr screen for [place]. [address] [place] [address] [address] [place] [address] infections w St, [place], [place], [address]. [place], transmissHuman [id number], immunodeficienc [place] y virus [HIV] tel:[phone] counseling [phone] [facility] Encounter for Reid Referring [facility] [place] surveillance of Sherine. 620 Provider: [place] injectable [address], Sherine [place] contraceptive [place], Reid J, 620 [facility], 620 [address], [place]. [address] [place] [address] [address] [place] tel:[phone] St, [place], [place], [place], [address] [place], [address]. [place], tel:[phone], 669431Hhwsk [place] lting tel:[phone] Provider: 635706 NURSE [place] [facility]. [facility] Encounter for Reid Referring [facility] [place] surveillance of Sherine. 620 Provider: Southern injectable [address], Sherine [place] contraceptiveHu [place], Reid J, 620 [place], 620 man [address], [place]. [address] [place] [address] [address] [place] immunodeficienc tel:[phone] St, [place], [place], [place], [place] virus [[place]] [address] [place], [address]. [place], counselingEncou tel:[phone], nter for 172175 [place] test, tel:[phone] result negative [id number] [facility] Encounter for Raphaelidis Referring [facility] [place] test, Taylor. 620 W Provider: [facility] result [address], [place] negativeCarcino [place], Raphaelidis [place], 620 [place] [address]. , [address] cervix, tel:[phone] [address], St, [place], unspecifiedCerv [address] [place], ical high risk [address]. [id number], HPV DNA test tel:[phone] [place] positiveLow 599707 tel:[phone] grade intrepith [phone] lesion cyto smr crvx (LGSIL) [facility] Encounter for Reid [facility] surveillance of Sherine. 620 Provider: [facility] injectable [address], Sherine [place] contraceptiveEn [place], Reid J, 620 [place], 620 [place] [address], [place]. [address] [place] [address] [place] [address] screening for tel:[phone] St, [place], [place], [place], [place] [address] [place], [address]. [place], neoplasm of tel:[phone], cervix 265676 [place] tel:[phone] [facility] Encounter for Lawrence Narayan. [facility]erring [facility] surveillance of [address] Provider: [facility] injectable 8 St, [place], [place], [address], [place], 620 [place], 620 [place]. [address] [place] [address], [place], [place], [place], [address]. [place], [id number], [place] tel:[phone] [facility] Encntr screen Hemmer Referring [facility] for infections Goodre Provider: [facility] sexl mode of 8 Sueane. 620 Sueane Finger transmissDisord [address], [place], 620 er of the skin [place], [facility], [address], [place], subcutaneous tel:[phone], [place], [place], [address] [place], [place], [id number], unspecifiedSeba [address]. [place] ceous cyst tel:[phone] tel:[phone] [facility] Encounter for Larwence Narayan. Referring [facility] surveillance of [address] Provider: Southern injectable 8 St, [place], [place], [address], [place], 620 [place], 620 [place]. [address] [place] [address], [place], [place], [place], [address]. [place], [id number], [place] tel:[phone] [facility] Encounter for Lawrence Narayan. Referring [facility] surveillance of [address] Provider: Southern injectable 8 St, [place], [place], [address], White, 620 [facility], [facility] [place]. [address] [place] [address], [place], [place], [place], [address]. [place], [id number], [place] tel:[phone] [facility] Encounter for Lawrence Narayan. Consulting [facility] surveillance of [address] Provider: [place] injectable 7 , [place], [address], PPS[facility]. [facility], [facility] [place]. [address], [place], [place], [id number], [place] tel:[phone] [facility] Moderate [facility] cervical 6 Kenna. [address] dysplasia [address], [place], [facility], [facility] [address]. 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 [address] lesion cyto smr [address], [place] crvx (LGSIL) [place], [facility], [facility] [address]. [address] [place] [address] tel:[phone] St, [place], [address] [place], [id number], [place] tel:[phone] [facility] Human Lawrence Narayan. [facility] [place] immunodeficienc [address] [place] y virus [HIV] 7 St, [place], [place], [address], [facility], [facility] nter for [place]. [address] test, [facility], result [place], negativeEncntr [id number], for logging engineer exam [place] (general) tel:[phone] (routine) w/o [phone] abn findingsEncount er for oth screening for malignant neoplasm of breastEncntr screen for infections w sexl mode of transmissEncoun ter for initial prescription of injectable contracep [facility] Encounter for [place] surveillance of [place] [address] injectable 7 Sueane. 620 Finger contraceptiveEn [address], [facility], 620 cntr screen for [place], [address] [place] [address] [address] [address], [place], sexl mode of tel:[phone] [place], transmiss [id number], [place] tel:[phone] [facility] Encounter for Nov-2 [employer] [facility] surveillance of [place]. 620 Provider: [place] injectable [address], [place]URSE [place] contrace[place], [facility]. [facility], 620 [address], [place]. [address] [place] [address] tel:[phone] St, [place], [address] [place], [id number], [place] tel:[phone] [facility] Encounter for Sep-0 [employer] [facility] surveillance of [place]. 620 Provider: [place] injectable [address], NURSE [place] contraceptive[place], [facility]. [facility], 620 [place] [address], [place]. [address] test, tel:[phone] St, [place], [place] negative [address] [place], [id number], [place] tel:[phone] [facility] Encounter for Sy-2 Lawrence Narayan. [facility] surveillance of [address] injectable 6 [address], [place], [place], [address], [facility], 620 cntr screen for [place]. [address] [place] [address] infections w St, [place], [place]l [place], transmiss [id number], [place] tel:[phone] [facility] Encounter for February-0 Lawrence Narayan. Consulting [facility] surveillance of [address] Provider: [place] injectable 6 [address], [place], [place], [address], [facility]. [facility], [address] [place]. [address], [place], [place], [id number], [place] tel:[phone] [facility] Contact w and Mar-2 [place] [facility] exposure to Kieran. [address] infect w a sexl [address], [place], [place], 620 transmissEncntr [address]. [address] screen for tel:[phone] St, [place], [place] w [address] [place], sexl mode of [id number], transmiss [place] tel:[phone] [facility] Encounter for Korwilmanlum Consulting [facility] surveillance of Laura. 620 W Provider: [facility] injectable [address], NURSE [place] contrace[place], [facility]. [facility], [facility] [address]. [address] [place] [address] tel:[phone] St, [place], [address] [place], [id number], [place] tel:[phone] [facility] Encounter for Brianna Terrell. [facility] [place] surveillance of [address] injectable [address] [place] contraceptive [place], [facility], [facility] [address]. [address] [place] [address] tel:[phone] St, [place], [address] [place], [id number], [place] tel:[phone] [facility] PT, NegativeBCM Jhonathan Beal. [facility] [place] Other, [address] SurveillanceUri [address], [place], [place], [address]. [facility], [facility] tel:[phone] [address] [address], [place], [place], [id number], [place] tel:[phone] [facility] BCM Other, Jhonathan Beal. Consulting [facility] Surveillance [address] Provider: Southern [address], [place], [address]. [facility]. [facility], [facility] tel:[phone] [address] [address], [place], [place], [id number], [place] tel:[phone] [facility] BCM Other, Parete [facility]ing [facility] Surveillance Kenna. 620 W Provider: Southern [address], NURSE [place], [facility]. [place] [address]. [address] [place] [address] tel:[phone] St, [place], [address] [place], [id number], [place] tel:[phone] [facility] BCM Other, Oct-0 Leeraciel Consulting [facility] Surveillance [place]. 620 W Provider: [address], NURSE [place], [facility]. [facility], [facility] [address]. [address] [place] [address] tel:[phone] St, [place], [address] [place], [id number], [place] tel:[phone] [facility] May- Judi [facility] [place] 5-201 Bing. [address], [place], [facility], [facility] [address]. [address] [place] [address] tel:[phone] St, [place], [address] [place], [id number], [place] tel:[phone] [facility] Brianna Terrell. [facility] [place] 0-201 [address] [place], [facility], [facility] [address]. [address] [place] [address] tel:[phone] St, [place], [address] [place], [id number], [place] tel:[phone] [facility] HIV, Jhonathan Beal. [facility] [place] ScreeningHIV 0-201 [address], [place], [facility], [address]. 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 [facility] Routine WWEBCM 0-201 [address] Other, [address] [place] Surveillance [place], [facility], [facility] [address]. [address] [place] [address] tel:[phone] St, [place], [address] [place], [id number], [place] tel:[phone] [facility] BCM Other, 0 Chloe Consulting [facility] Surveillance Kieran. 620 Provider: [facility] [address], NURSE [place], [facility]. [place] [address]. 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 [facility]. 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 OB-BUSINESS SUPPORT ASSISTANT [facility]. Evaluate and treat [...] Date No information Medical Equipment Description Device [place] Device Identifier Effective Dates (start - stop ) Status No information Mental Status Date Cognitive Assessment No information Health Concerns Observation Date No information Concern Status Date No information
--- OUTSIDE RECORDS SUMMARY | 2019-10-19 15:45 | XMS REPORT | Continuity of Care Document ---
:1990 Author Organization [facility] Address [address] [place] [address] Phone Care Team Providers Name Role Phone [...] Encounter for test, result negative Encntr for aboriginal ceremonial celebrant exam (general) (routine) w/o abn findings Encounter [...] BCM Other, Surveillance HIV, Screening HIV Counseling TESTER PRINTED CIRCUIT BOARDS Exam, Routine WWE BCM Other, Surveillance BCM [...] For Visit Copied on Encounter [facility] Moderate Nov-2 Raphaelidis [facility] [place] cervical 5-201 [place]. [address] [facility] dysplasiaAtyp [address], [place] squam cell [place], [place], [place], 620 undet signfc [address]. W [address] cyto smr crvx tel:[phone] St, [place], (ASC-US)Cervica [address] [place], l high risk HPV [id number], DNA test [place] positive tel:[phone] [facility] Atyp squam cell Nov- Raphael Referring [facility] [place] of undet signfc [place]. 620 W Provider: Buffy cyto smr crvx [address], [place] (ASC-US)Cervica [place], [place], Raphkevinidis [facility], 620 l high risk HPV [address]. , [address] DNA test tel:[phone] [address], St, [place], positiveMild [address] [place], [place], [place], cervical [address]. [id number], dysplasia tel:[phone] [place] 614029 tel:[phone] [facility] Encounter for Aug- Parete Referring [facility] [place] ot general . 620 W Provider: Buffy cnsl and advice [address], [place] on [place], [place], Parete, 620 [place], 620 contraceptionCe [address]. W Alutiiq W Alutiiq rvical high tel:[phone] St, [place], [place], [place], [place] [address] [place], [address]. [place], test tel:[phone], positiveMild 367048 [place] cervical tel:[phone] dysplasiaEncntr [id number] screen for infections w sexl mode of transmissEncoun ter for surveillance of injectable contraceptive [facility] [place] surveillance of [place]. [address] W Provider: [facility] injectable [address], [place]inger contraceptiveHu [place], [place], [facility], 620 man [address]. , [address] immunodeficienc tel:[phone] [address], St, [place], y virus [HIV] [address] [place], [place], [place], counseling [address]. [id number], tel:[phone] [place] 593900 tel:[phone] [facility] Encounter for White Helene. Referring [facility] [place] surveillance of [address] Provider: [facility] injectable 9 St, [place], [place], [address], [place], 620 [place], 620 cntr screen for [place]. W Alutiiq W Alutiiq infections w St, [place], [place], [place], [place], [address]. [place], transmissHuman [id number], immunodeficienc [place] y virus [HIV] tel:[phone] counseling [phone] [facility] Encounter for Reid Referring [facility] [place] surveillance of Sherine. 620 Provider: [place] injectable [address], Sherine Finger contraceptive [place], [place], Reid J, 620 [facility], 620 [address], [place]. W Alutiiq W Alutiiq tel:[phone] St, [place], St, [place], [address] [place], [address]. [place], tel:[phone], 999850Dcagl [place] lting tel:[phone] Provider: [id number] NURSE [place] [facility]. [facility] Encounter for Referring [facility] [place] surveillance of Sherine. 620 Provider: [place] injectable [address], Sherine Finger contraceptiveHu [place], [place], Reid J, 620 [facility], 620 man [address], [place]. W Alutiiq W Alutiiq immunodeficienc tel:[phone] St, [place], St, [place], [place] virus [HIV] [address] [place], [address]. [place], counselingEncou tel:[phone], nter for 025707 [place] test, tel:[phone] result negative [phone] [facility] Encounter for Raphael Referring [facility] [place] test, Taylor. 620 W Provider: Southern result [address], [place] Finger negativeCarcino [place], [place], Raphaelidis [facility], 620 [place] [address]. , [address] W [address] cervix, tel:[phone] [address], St, [place], unspecifiedCerv [address] [place], [place], ical high risk [address]. [id number], HPV DNA test tel:[phone] US positiveLow 618881 tel:[phone] grade intrepith 865001 lesion cyto smr crvx (LGSIL) [facility] Encounter for Reid [facility] of Sherine. 620 Provider: [place] injectable [address], Sherine [place]inger contraceptiveEn [place], [place], Reid J, 620 [place], 620 [place] [address], [place]. W Alutiiq W Alutiiq screening for tel:[phone] St, [place], St, [place], [place] [address] [place], [address]. [place], neoplasm of tel:[phone], cervix 836065 [place] tel:[phone] [facility] Encounter for Lawrence Narayan. [facility] surveillance of [address] W [address] Provider: Southern injectable 8 St, [place], [place], [address], [place], 620 [place], 620 [place]. W [address], [place], [place], [place], [address]. [place], [id number], [place] tel:[phone] [facility] Encntr screen Hemmer Referring [facility] for infections [place] Provider: [facility] w sexl mode of 8 Sueane. 620 Sueane Finger transmissDisord W [address], [place], 620 er of the skin [place], [place], [place], W [place] and [address], [place], subcutaneous tel:[phone] [address], [place], tissue, [address] [place], [place], [id number], unspecifiedSeba [address]. [place] ceous cyst tel:[phone] tel:[phone] [facility] Encounter for Lawrence Narayan. [facility] surveillance of 0 620 W Alutiiq Provider: Southern injectable 8 St, [place], [place], [address], [place], 620 [place], 620 [place]. W [address], [place], [place], [place], [address]. [place], [id number], [place] tel:[phone] [facility] Encounter for Lawrence Narayan. [facility] surveillance of 620 W Al[address]q Provider: Southern injectable 8 St, [place], [place], [address], [place], 620 [place], 620 [place]. W [address], [place], [place], [place], [address]. [place], [id number], [place] tel:[phone] [facility] Encounter for Aug- White Helene. Consulting [facility] [place] surveillance of 620 W [address] Provider: [place] injectable 7 [facility], [place], [address], PPS[facility]. [place], [address], [place], [place], [id number], [place] tel:[phone] [facility] Moderate May- Parete [facility] [place] cervical 6-201 Kenna. 620 W [place] dysplasia [address], [place], [place], [facility], 620 [address]. 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 620 W Southern lesion cyto smr 7 [address] , Finger crvx (LGSIL) [place], [place], [facility], 620 [address]. W [address]q tel:[phone] , [place], [address] [place], [id number], [place] tel:[phone] [facility] Human Apr- Lawrence Narayan. [facility] [place] immunodeficienc 620 W [address] Southern y virus [HIV] 7 , [place], [place], [address], [facility], [facility] nter for US. W Alutiiq test, [facility], result [place], negativeEncntr [id number], for aboriginal ceremonial celebrant exam [place] (general) tel:[phone] (routine) w/o [phone] abn findingsEncount er for oth screening for malignant neoplasm of breastEncntr screen for infections w sexl mode of transmissEncoun ter for initial prescription of injectable contracep [facility] Encounter for Hemmer [facility] surveillance of [place] Southern injectable 7 Sueane. 620 Finger contraceptiveEn W [address] , [facility], 620 cntr screen for [place], [place] [address]. , [place], sexl mode of tel:[phone] [place], transmiss [id number], [place] tel:[phone] [facility] Encounter for Nov-2 Borglum Consulting [facility] surveillance of Kelle. 620 Provider: [place] injectable [address], NURSE [place] contrace[place], [place], PPS[facility]. [facility], [facility] [address], [place]. W Alutiiq tel:[phone] St, [place], [address] [place], [id number], [place] tel:[phone] [facility] Encounter for Sep-0 Borglum Consulting [facility] surveillance of Kelle. 620 Provider: [place] injectable [address], NURSE [place] contraceptive[place], PPS[facility]. [facility], [facility] [place] [address], [place]. W Alutiiq test, [phone] [facility] [place] negative [address] [place], [id number], [place] tel:[phone] [facility] Encounter for Mar- Lawrence Narayan. [facility] surveillance of [address] Southern injectable 6 St, [place], [place], [address], [facility], [facility] cntr screen for [place]. W Alutiiq infections w St, [place], sexl mode of [place], transmiss [id number], [place] tel:[phone] [facility] Encounter for February- Lawrence Narayan. Consulting [facility] surveillance of 620 W [address] Provider: [place] injectable 6 St, [place], [place] [address], PPS[facility]. [facility], [address], [place], [place], [id number], [place] tel:[phone] [facility] Contact w and Dec- Ottoson [facility] exposure to Kieran. 620 Southern infect w a sexl [address], [place] mode of [place], [place], [facility], 620 transmissEncntr [address]. W Alutiiq screen for tel:[phone] St, [place], [place] [address] [place], sexl mode of [id number], transmiss [place] tel:[phone] [facility] Encounter for Kornblum Consulting [facility] surveillance of Laura. 620 W Provider: [place] injectable [address], NURSE [place] contrace[place], PPS[facility]. [facility], [facility] [address]. W Alutiiq tel:[phone] St, [place], [address] [place], [id number], [place] tel:[phone] [facility] Encounter for Brianna Terrell. [facility] [place] surveillance of 620 W. Southern injectable [address] [place] contraceptive [place], [place], [facility], [facility] [address]. W Alutiiq tel:[phone] St, [place], [address] [place], [id number], [place] tel:[phone] [facility] PT, NegativeBCM Jhonathan Beal. [facility] [place] Other, [address] W [address] SurveillanceUri [address], [place], [facility] [address]. [facility], [facility] tel:[phone] [address], [place], [place], [id number], [place] tel:[phone] [facility] BCM Other, Jhonathan Beal. Consulting [facility] Surveillance 620 W [address] Provider: Southern [address] St, [place], [place], [address]. PPSFL. [facility], [facility] tel:[phone] W [address], [place], [place], [id number], [place] tel:[phone] [facility] BCM Other, Parete [facility]ing [facility] Surveillance [place]. 620 W Provider: [facility] [address], NURSE [place], [place], PPS[facility]. [place] [address]. W Alutiiq tel:[phone] St, [place], [address] [place], [id number], [place] tel:[phone] [facility] BCM Other, Jul-0 Deepak Consulting [facility] Surveillance [place]. 620 W Provider: Southern [address], NURSE [place], [place], PPS[facility]. [place] [address]. W Alutiiq tel:[phone] St, [place], [address] [place], [id number], [place] tel:[phone] [facility] May- Judi [facility] [place] Bing. [address] Southern [address], [place], [facility], [facility] [address]. W Alutiiq tel:[phone] St, [place], [address] [place], [id number], [place] tel:[phone] [facility] Brianna Terrell. [facility] [place] 0-201 620 [address]. Southern [address] [place], [facility], [facility] [address]. W Alutiiq tel:[phone] St, [place], [address] [place], [id number], [place] tel:[phone] [facility] HIV, Jhonathan Beal. [facility] [place] ScreeningHIV 0-201 620 [address] [place] Counseling 4 , [place], [place], [address]. [facility], [facility] tel:[phone], [place], [place], [id number], [place] tel:[phone] [facility] TESTER PRINTED CIRCUIT BOARDS Exam, Brianna Terrell. [facility] Routine WWEBCM 0-201 620 [address]. Southern Other, [address] [place] Surveillance [place], [facility], [facility] [address]. W Alutiiq tel:[phone] , [place], [address] [place], [id number], [place] tel:[phone] [facility] BCM Other, Chloe Consulting [facility] [address] [place]. [facility] Provider: [address], NURSE [place] FEL[place], PPS[facility]. [place] [address]. W Alutiiq tel:[phone] [facility], [address] [place], [id number], [place] tel:[phone] Family History Family Member Diagnosis Age At [...] Comments measles, mumps and rubella administered Note: [facility] HX 2005 ; virus vaccine Source: Source Unspecified Hep B, adult, 3 dose administered Note: PER [facility] HX 07/2006 ; Source: Source Unspecified Payers Payer name Insurance type Covered democrat ID Authorization(s) [facility] [id number] Social History Type Description Quantity Date Captured [...] Action Status Referral Referred To: ordered [facility] Ordered: Referrals: Automatic Buffer. [facility]. Evaluate and treat Referral Ordered: ordered Gynecology (related to Moderate cervical dysplasia) Referral Referred To: ordered [facility] [employer] [facility] [address] [place], [place], [id number] Ordered: Referrals: Gynecology. [facility] [employer] [facility]. Evaluate and treat History Of Present Illness Encounter Date Complaint History Of Present Illness No information Functional Status Date Functional Assessment No information Medications Administered Medication Instructions Dosage Effective Dates (start - stop) Status Comments No information Instructions Date Instruction Additional Information No information Assessments Type Assessment Date assessment Moderate cervical dysplasia assessment Atyp squam cell of undet signfc cyto smr crvx (ASC-US) assessment Cervical high risk HPV DNA test positive Goals Health Concern Goal Type Priority Status Date No information Medical Equipment Description Device [place] Device Identifier Effective Dates (start - stop ) Status No information Mental Status Date Cognitive Assessment No information Health Concerns Observation Date No information Concern Status Date No information
--- NOTE | 2019-10-19 17:25 | UC ---
Bite Injury/Animal HPI - HPI Summary HPI Summary: 28 y/o female presents to the urgent care c/o laceration under her RT eyelid s/ p an owl scratched her face while feeding it at the [facility] today [id number]. 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 She states she looked into the owl's eye directly and it immediately scratched the Rt side of her face. The owl receives regular control director care through [facility] and is UTD w/ vaccines. She is not sure when she got the last Tetanus vaccine. Pt states she irrigated her laceration and bleeding stopped w/ pressure. She states her father is a plastic surgeon who used retired in 2007 and who used to work here in [place]. She states her father is suggesting the laceration repair needs a plastic surgeon. Pain is 2/10 at touch. Pt denies fever, SHAFER, visual changes, eye pain, photophobia, dizziness, SOB, chest pain, abdominal pain, N/V/d. - History of Current Complaint Chief Complaint: BIBIkin Stated Complaint: FACIAL INJURY Time Seen by Provider: 10/19/19 17:23 Hx Obtained From: Patient Hx Last Menstrual Period: depo ?: No Severity Currently: Mild Severity Initially: Mild Pain Intensity: 4 Pain Scale Used: 0-10 Numeric Onset/Duration: Sudden Onset - laceration under the left lower eyelid s/p owel attack, Lasting Hours - 3 hrs - Allergies/Home Medications Allergies/Adverse Reactions: Allergies Allergy/AdvReac Type Severity Reaction Status Date / Time shellfish derived Allergy Vomiting Verified 10/19/19 15:53 Home Medications: Home Medications Dextroamphetamine/Amphetamine [Adderall 20 mg Tablet] 1 tab PO BID 10/19/19 [ History Confirmed 10/19/19] Escitalopram * [Lexapro 5 mg (NF)] 5 mg PO DAILY 10/19/19 [History Confirmed 05/01] Medroxyprogesterone Acetate [Depo-Provera Contraceptiv] 150 mg IM 10/19/19 [ History] PMH/Surg Hx/FS Hx/Imm Hx Previously Healthy: Yes Respiratory History: Asthma - Surgical History Surgical History: None - Family History Known Family History: Positive: Hypertension - Social History Occupation: Employed Full-time Lives: With Family Alcohol Use: Weekly Substance Use Type: None Smoking Status (MU): Never Smoked Tobacco - Immunization History Hx Tetanus, Diphtheria Vaccination: No - unsure when was the last Tetanus vaccine Review of Systems All Other Systems Reviewed And Are Negative: Yes Constitutional: Positive: Negative Skin: Positive: Other - laceration under the Rt lower eyelid and RT side facial scartches s/p attack from an owl Eyes: Positive: Negative ENT: Positive: Negative Respiratory: Positive: Negative Cardiovascular: Positive: Negative Gastrointestinal: Positive: Negative Genitourinary: Positive: Negative Motor: Positive: Negative Neurovascular: Positive: Negative Musculoskeletal: Positive: Other: - RT cheek pain s/p laceration Neurological: Positive: Negative Psychological: Positive: Negative Is Patient Immunocompromised?: No Physical Exam - Summary Physical Exam Summary: Vital Signs Reviewed: Yes General: well developed, well nourished female sitting in the examining table w/ o any apparent distress Eye Exam: Normal Eyes: Positive: Conjunctiva Clear - PERRLA, EOMI, fundi grossly normal ENT: Positive: Normal ENT inspection, Hearing grossly normal, Pharynx normal, TMs normal Neck: Positive: Supple, Nontender, No Lymphadenopathy Respiratory: Positive: Chest non-tender, Lungs clear, Normal breath sounds, No respiratory distress Cardiovascular: Positive: RRR, No Murmur, Pulses Normal, Brisk Capillary Refill Abdomen Description: Positive: Nontender, No Organomegaly, Soft. Negative: CVA Tenderness (R), CVA Tenderness (L) Bowel Sounds: Positive: Present Musculoskeletal: Positive: Strength Intact, ROM Intact, No Edema Neurological: Positive: Alert, Muscle Tone Normal Psychological Exam: Normal Skin: Positive: RT cheek w/ 2 superficial linear scratches about 3cm in size each. Also a linear laceration under the RT lower eyelid beginning at the Rt lacrimal duct and ending at the midpoint of the lower eyelid, about 2.8cm in size, bleeding w/ eyelid movement, no eyeball involvement, no foreign body observed. mild tenderness to palpation, mild ecchymosis around laceration w/ mild swelling. EOMI, sensation intact, capillary refill brisk, and pulses WNL. Triage Information Reviewed: Yes Vital Signs: Initial Vital Signs Temp 98.7 F 10/19/19 15:48 Pulse 98 10/19/19 15:48 Resp 18 10/19/19 15:48 BP 136/92 01/07/20 15:48 Pulse Ox 100 10/19/19 15:48 Bite Injury Course/Dx - Course Course Of Treatment: 28 y/o female presents to the urgent care c/o laceration under her RT eyelid s/ p an owl scratched her face while feeding it at the [facility] today [id number]. 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 She states she looked into the owl's eye directly and it immediately scratched the Rt side of her face. The owl receives regular control director care through [facility] and is UTD w/ vaccines. She is not sure when she got the last Tetanus vaccine. Pt states she irrigated her laceration and bleeding stopped w/ pressure. She states her father is a plastic surgeon who used retired in 2007 and who used to work here in [place]. She states her father is suggesting the laceration repair needs a plastic surgeon. Pain is 2/10 at touch. Pt denies fever, SHAFER, visual changes, eye pain, photophobia, dizziness, SOB, chest pain, abdominal pain, N/V/d. Hx obtained. Pt is hemodynamically stable, VS:WNL. Pt w/ RT cheek w/ 2 superficial linear scratches about 3cm in size each. Also a linear laceration under the RT lower eyelid beginning at the Rt lacrimal duct and ending at the midpoint of the lower eyelid, about 2.8cm in size, bleeding w / eyelid movement, no eyeball involvement, no foreign body observed. mild tenderness to palpation, mild ecchymosis around laceration w/ mild swelling. EOMI on examination. Pt's wound irrigates w/ sterile water by the nurse and no FB observed. Pt given first dose of Tetanus vaccine and first dose of Augmentin PO by the nurse. Pt Rx Augmentin PO as directed below for prophylactic treatment. Pt explained we don't have a plastic surgeon data conversion operator and her laceration can't be closed w/ skin adhesive. Pt's symptoms discussed w/ DR Gamez who evaluated Pt's laceration and he also advised due location of the laceration,Pt should go to the [facility] who has a Plastic surgeon data conversion operator. I called [facility] who confirms they have a plastic surgeon data conversion operator and Pt can be seen there. I spoke to Pt's father DR Fischer who couldn't believe we didn't have a plastic surgeon data conversion operator since he used to be data conversion operator when he was living here in [facility]. Then he suggested ENT DR Leslie who was his friend. I told him SR Leslie is no longer w/ us. He also stated Dr Elam was his friend. I suggested he personally call them to see if they can see her daughter for facial laceration repair. Pt's BP is elevated today advised to decrease salt in diet, monitor BP and f/u with PCP for further management. D/C instructions explained and understood and agreed w/ plan of care and states her father was trying to contact the plastic surgeon or the ENT and if not success she will go to [facility]. Pt left clinic hemodynamically stable, and ambulating. After Pt left the urgent care, DR Elam called the clinic and states he was coming over to the laceration repair. Pt was contacted by Nurse over her cell phone and Pt stated she already spoke to Dr Elam who was going to do the facial laceration repair in his office. - Differential Dx/Diagnosis Differential Diagnosis/HQI/PQRI: Cellulitis, Laceration, Puncture, Rabies Exposure Provider Diagnosis: Facial laceration, Elevated BP without diagnosis of hypertension Discharge ED - Sign-Out/Discharge Documenting (check all that apply): Patient Departure - D/C home All imaging exams completed and their final reports reviewed: No Studies - Discharge Plan Condition: Stable Disposition: HOME Prescriptions: Amoxicillin/Clavulanate TAB* [Augmentin TAB 875*] 875 mg PO BID #19 tab Patient Education Materials: Facial Laceration (ED) Referrals: Yadiel Wall MD [Primary Care Provider] - 2 Days Additional Instructions: 1-I think you need a higher level or care for your lower eyelid laceration since it may need a plastic surgeon. I highly recommend you to go to the [facility] ER who have a plastic surgeon data conversion operator for further evaluation and treatment. You were given Tetanus vaccine today and firs dose of Augmentin PO for prophylactic treatment. 2- Please continue applying ice and take Augmentin PO as directed. 3-Your BP is elevated today advised to decrease salt in diet, monitor BP and f/ u with PCP for further management. - Billing Disposition and Condition Condition: STABLE Disposition: Home
[2019-10-19] MEDS ORDERED: Tetan/Diph/Pertus SYR(Tdap)* 0.5 ML SYR(BOOSTRIX) use SYR contains LATEX IM ONE (17:26)
[2019-10-19] MEDS ORDERED: Amoxicillin/Clavulanate TAB* 875 MG PO ONE (18:00)
[2019-10-19 18:34] VITALS: BP 124/90
== END 2019-10-19 18:34 | disposition home or self-care (01) ==
LOC: UCEAST 15:21
DX: S01.112A Laceration without foreign body of left eyelid and periocular area, initial encounter (principal); Z91.013 Allergy to seafood; Z23 Encounter for immunization; W61.99XA Other contact with other birds, initial encounter; Y92.9 Unspecified place or not applicable; Y99.0 Civilian activity done for income or pay
CPT/HCPCS: 90715; 99212; A9270-GY; G0463